=== PATIENT | male | born 1980 | race Caucasian/White ===

== ENCOUNTER 2020-07-18 14:27 | Emergency (ER) | payer OTHER, SELFPAY ==
[2020-07-18 14:41] VITALS: BP 150/87; PULSE 125; RESP 16; TEMP 36.4; O2SAT 99
[2020-07-18 14:43] VITALS: BP 150/87; PULSE 125; RESP 16; TEMP 36.4; O2SAT 99
--- NOTE | 2020-07-18 14:48 | ED.WOUNDLAC ---
HPI - Wound/Laceration General Chief Complaint: Wound/Laceration Stated Complaint: non healing wound left arm Source: patient Mode of arrival: ambulatory Limitations: no limitations History of Present Illness HPI narrative: Patient is a 39-year-old male who presents complaining of left arm abscess. Patient reports history of abscesses in the past, reports current area on the left forearm x3 to 4 days. He denies all other complaints. He denies significant medical history. He denies taking [id number] medications for pain prior to arrival. Related Data Allergies Allergy/AdvReac Type Severity Reaction Status Date / Time No Known Allergies Allergy Verified 07/18/20 14:42 Review of Systems Review of Systems: Narrative: CONSTITUTIONAL: Denies fever, chills, or sweats. EYES: Denies visual changes, redness, or discharge. ENT: Denies rhinorrhea, congestion, sore throat, or otalgia. CARDIOVASCULAR: Denies chest pain, palpitations, or edema. RESPIRATORY: Denies cough or dyspnea. GASTROINTESTINAL: Denies abdominal pain, nausea, vomiting, or diarrhea. GENITOURINARY: Denies dysuria or hematuria. SKIN: Abscess to left forearm MUSCULOSKELETAL: Denies back pain, joint pain, or myalgia. NEUROLOGIC: Denies headache, numbness, dizziness, or weakness. PSYCHIATRIC: Denies anxiety or depression. PMFSH Past Medical History Medical History Abscess Surgical History Surgical History No significant past surgical history Family History Family History Other Hypertension Social History Social History (Updated 07/18/20 @ 14:50 by KANNAN Still) Smoking status: Current every day smoker Alcohol intake: current Substance use: current Substance use type: marijuana Living arrangements: with family Gender identity (if verbalized by the patient): Male Comments At the time of signature, I have reviewed and agree with nursing past medical, surgical, social, and family history unless otherwise noted. Please see nursing chart for further information. There is no relevant family history pertinent to the presenting complaint. Exam Narrative: Exam Narrative: GENERAL: Well-appearing, well-nourished, and in no acute distress. HEAD: Normocephalic, atraumatic. EYES: EOMI. No redness or drainage. Conjunctiva are normal. ENT: Mucous membranes pink and moist. Nares clear. No rhinorrhea. TMs normal bilaterally. Throat normal. Uvula midline. NECK: AROM. Supple. No lymphadenopathy. CHEST: No respiratory distress. Clear to auscultation. HEART: Regular rate and rhythm. No murmur appreciated. Normal peripheral pulses. GI: Soft, nontender without rebound, or guarding. No distention. Bowel sounds normal in all quadrants. MUSCULOSKELETAL: No bony tenderness. EXTREMITIES: Normal range of motion. No edema. SKIN: Approximate 3 cm abscess to left forearm, drainage noted. Fluctuation or induration noted. NEURO: No focal deficits. Alert and oriented x3. Gait steady. PSYCH: Normal affect. No signs of depression or anxiety. Course Vital Signs Vital signs: Vital Signs Temperature 36.4 C 07/18/20 14:41 Pulse Rate 125 H 07/18/20 14:41 Respiratory Rate 16 07/18/20 14:41 Blood Pressure 150/87 H 07/18/20 14:41 Pulse Oximetry 99 07/18/20 14:41 Temperature 36.4 C 07/18/20 14:43 Pulse Rate 125 H 07/18/20 14:43 Respiratory Rate 16 07/18/20 14:43 Blood Pressure 150/87 H 07/18/20 14:43 Pulse Oximetry 99 07/18/20 14:43 Procedures Abscess I/D upper extremity: Date of Incision: 07/18/20 Time of Incision: 14:51 Side (if applicable): left Sedation/analgesia: none Local Anesthetic: none Technique: needle aspiration and probed loculations Amount of fluid expressed (mL): 1 Irrigation: Yes
== END 2020-07-18 15:03 | disposition home or self-care (01) ==
PROVIDERS: Emergency Provider Nurse Practitioner
DX: L02.414 Cutaneous abscess of left upper limb (principal); F17.210 Nicotine dependence, cigarettes, uncomplicated
CPT/HCPCS: 10160; 99203; G0463